=== PATIENT | female | born 1960 | race African-American/Black ===

== ENCOUNTER 2021-03-12 08:27 | Emergency (ER) | payer MEDICAID ==
[~2021-03-12] VITALS: Ht 165.1 cm; Wt 75.0 kg
[2021-03-12] MEDS ORDERED: SODIUM CHLORIDE 0.9% 1,000 ML IV ONE (08:45)
[2021-03-12 10:01] LABS: BG BASE EXCESS 0.7 mmol/L (-2.0-2.0); BG CARBOXYHEMOGLOBIN 2.5 % (0.5-1.5); BG DEOXYHEMOGLOBIN 5.5 % (0.0-5.0); BG FRACTION INSPIRED OXYGEN 21; BG HCO3 ACT 26.3 mmol/L (22.0-26.0); BG METHEMOGLOBIN 0.4 % (0.0-1.5); BG OXYGEN SATURATION 94.3 % (92.0-98.5); BG OXYHEMOGLOBIN 91.6 % (94.0-97.0); BG PCO2 45.4 mmHg (35.0-45.0); BG PO2 78.3 mmHg (75.0-100.0); BG SAMPLE SITE RIGHT RADIAL; BG TOTAL HEMOGLOBIN 14.1 g/dL (12.0-18.0); BG VENT MODE ROOM AIR
[2021-03-12 10:34] VITALS: BP 140/80
== END 2021-03-12 10:35 | disposition left against medical advice (07) ==
LOC: ER 08:41
DX: R42 Dizziness and giddiness (principal); R47.81 Slurred speech; F32.9 Major depressive disorder, single episode, unspecified; E11.9 Type 2 diabetes mellitus without complications
CPT/HCPCS: 36600; 71045; 82375; 82805; 82962; 93005; 99285; J7030; Z7610

== ENCOUNTER 2023-02-12 15:17 | Emergency (ER) | payer MEDICAID ==
[~2023-02-12] VITALS: Ht 157.5 cm; Wt 58.0 kg
[2023-02-12 15:22] VITALS: BP 130/86; PULSE 101; RESP 16; TEMP 98; O2SAT 96
[2023-02-12] MEDS ORDERED: INSULIN REGULAR (HUMULIN R) 300UNITS/3ML VIAL SUBCUT ONE (16:15)
[2023-02-12] MEDS ORDERED: IBUP-2029 MT (17:24)
== END 2023-02-12 17:31 | disposition left against medical advice (07) ==
LOC: ER 15:17
DX: S09.90XA Unspecified injury of head, initial encounter (principal); E11.65 Type 2 diabetes mellitus with hyperglycemia; Y04.0XXA Assault by unarmed brawl or fight, initial encounter; Y93.89 Activity, other specified; Y92.89 Other specified places as the place of occurrence of the external cause; Y99.8 Other external cause status
CPT/HCPCS: 82962; 99283